=== PATIENT | female | born 1970 | race Caucasian/White ===

== ENCOUNTER → 2021-04-20 | Outpatient (CLI) | payer OTHER | LOC: COL.VAS 13:39 | DX: N18.4 Chronic kidney disease, stage 4 (severe) (principal) ==

== ENCOUNTER 2021-10-30 15:38 | Inpatient (IN) | payer OTHER ==
[~2021-10-30] VITALS: Ht 149.9 cm; Wt 79.3 kg
[2021-11-01 09:50] LABS: BASO % 0.4 % (0.0-2.0); EOS # 0.4 K/mm3 (0.0-0.7); EOS % 4.5 % (0-4.0); GRAN # 5.8 K/mm3 (1.4-6.5); GRAN % 70.9 % (42.2-75.2); LYMPH % 12.5 % (20.0-51.0); MEAN CELL VOLUME 86 fl (80.0-100.0); MEAN CORPUSCULAR HGB CONC 31 g/dl (33.0-37.0); MEAN PLATELET VOLUME 11.2 fl (7.4-10.4); MONO # 0.9 K/mm3 (0.1-0.6); MONO % 11.2 % (1.7-9.3); PLATELET COUNT 171 K/mm3 (130-400); RED BLOOD COUNT 3.35 M/mm3 (4.10-5.30); REDCELL DISTRIBUTION WIDTH-CV 13.9 % (11.5-14.5)
[2021-11-01 09:52] LABS: HEMATOCRIT 28.8 % (37.0-47.0); MEAN CORPUSCULAR HEMOGLOBIN 27 pg (27.0-31.0)
[2021-11-01 10:06] LABS: ALBUMIN 3.1 gm/dL (3.5-5.0); CALCIUM 8.8 mg/dL (8.4-10.2); CREATININE, serum 3.32 mg/dL (0.57-1.11); PHOSPHOROUS 4.4 mg/dL (2.3-4.7); POTASSIUM 4.7 mmol/L (3.5-4.5)
--- NOTE | 2021-11-01 11:30 | NUR ---
PT RETURNED FROM OR. O2 SATS ARE UNSTABLE RANGING FROM 88-94% ON ROOM AIR. BP IS SOMEWHAT LOW AT 111/35. TEMP 97.6 HR IS 75 AND RR 14.
--- NOTE | 2021-11-01 15:26 | NUR ---
PATIENT TOLERATED HER 1ST HD TX WITH 900 ML FLUID REMOVAL. NEXT PLANNED HD TX TOMORROW, Saturday11/02/21 @ 0830.
[2021-11-01 15:27] VITALS: BP 119/59; PULSE 77; TEMP 97.8
[2021-11-01 16:04] VITALS: BP 150/52; PULSE 76; TEMP 98.6
[2021-11-01] MEDS ORDERED: NORVASC 10MG10 MG PO (16:36)
[2021-11-01] MEDS ORDERED: SPORANOX100 MG PO (16:37)
[2021-11-01] MEDS ORDERED: ASPIRIN 81M81 MG/TA2 PO (16:37)
[2021-11-01] MEDS ORDERED: TOPROL XL100 MG PO (16:39)
[2021-11-01] MEDS ORDERED: BUMEX2 MG PO (16:39)
[2021-11-01] MEDS ORDERED: ROCALTROL0.5 MCG PO (16:40)
[2021-11-01] MEDS ORDERED: REGLAN 5MG T5 MG/TAB PO (16:41)
[2021-11-01] MEDS ORDERED: ZESTRIL 20MG TA20 MG PO (16:41)
[2021-11-01] MEDS ORDERED: LANTUS100 U/ML SQ (16:43)
[2021-11-01] MEDS ORDERED: ARANESP0.06 MG/0. SQ (16:45)
[2021-11-01] MEDS ORDERED: VELTASSA8.4 GM PO (16:47)
[2021-11-01 19:11] VITALS: BP 138/48; PULSE 78; TEMP 98.2
[2021-11-01 23:07] LABS: TRANSFERRIN 146 mg/dL (180-382)
--- NOTE | 2021-11-01 23:42 | NUR ---
ALERT AND OX4. DENIES SOA, CHEST PAIN OR DIZZY. DIALYSIS INITATED TODAY. BEDROS CALLED TO RESTART HOME MEDS AND TO ASK FOR PAIN MEDS. TYL NOT WORKING. PM MEDS GIVEN. INSULIN AND CHECKS PER ORDER. CALL LIGHT WI REACH.
[2021-11-01 23:53] VITALS: BP 157/58; PULSE 87; TEMP 98.7
[2021-11-02 01:02] LABS: HEPATITIS B SURFACE ANTIBODY <2.0 (()); HEPATITIS B SURFACE ANTIGEN Negative (Negative); HEPATITIS C VIRUS ANTIBODY Negative (Negative)
[2021-11-02 03:53] VITALS: BP 151/64; PULSE 83; TEMP 98
--- NOTE | 2021-11-02 05:25 | NUR ---
RESTED THROUGH THE NIGHT WITHOUT INCIDENT. NEEDS MET.
--- NOTE | 2021-11-02 06:32 | NUR ---
DRINKING OJ FOR 52 BLOOD SUGAR BRINGS IT UP TO 68. DRINKING ANOTHER JUICE CUP NOW. ASSYMTOMATIC.
[2021-11-02 08:00] VITALS: BP 157/62; PULSE 86; TEMP 98.5
--- NOTE | 2021-11-02 08:30 | NUR ---
Patient is going to dialysis at this time
[2021-11-02 09:34] LABS: BASO % 0.3 % (0.0-2.0); EOS # 0.4 K/mm3 (0.0-0.7); GRAN % 71.7 % (42.2-75.2); LYMPH # 0.7 K/mm3 (1.2-3.4); LYMPH % 10.5 % (20.0-51.0); MEAN CELL VOLUME 86 fl (80.0-100.0); MEAN CORPUSCULAR HGB CONC 31 g/dl (33.0-37.0); MONO # 0.8 K/mm3 (0.1-0.6); MONO % 11.9 % (1.7-9.3); PLATELET COUNT 197 K/mm3 (130-400); RED BLOOD COUNT 3.18 M/mm3 (4.10-5.30); REDCELL DISTRIBUTION WIDTH-CV 13.7 % (11.5-14.5)
[2021-11-02 09:35] LABS: HEMATOCRIT 27.3 % (37.0-47.0); HEMOGLOBIN 8.5 g/dl (12.5-16.0); MEAN CORPUSCULAR HEMOGLOBIN 27 pg (27.0-31.0)
[2021-11-02 09:40] LABS: INR 1.1 (0.8-3.0); PROTHROMBIN TIME 11.7 SECONDS (9.7-12.8)
[2021-11-02 09:49] LABS: ALBUMIN 2.8 gm/dL (3.5-5.0); CALCIUM 8.6 mg/dL (8.4-10.2); CREATININE, serum 2.54 mg/dL (0.57-1.11); PHOSPHOROUS 3.8 mg/dL (2.3-4.7); POTASSIUM 4.5 mmol/L (3.5-4.5)
[2021-11-02 11:17] VITALS: BP 170/74; PULSE 82; TEMP 97.9
--- NOTE | 2021-11-02 11:18 | NUR ---
PATIENT TOLERATED HER 2ND HD TX WITH 900 ML OF FLUID REMOVED. NEXT PLANNED HD TX TOMORROW, Saturday11/03/21 @ 0830.
[2021-11-02 11:37] VITALS: BP 149/61; PULSE 85; TEMP 97.7
--- NOTE | 2021-11-02 14:28 | NUR ---
PAULA met with the patient to discuss discharge plan. The patient lives in [place] with her , Max (ph#[phone]). She reports independence with ADLS and does not have any DME. The patient's PCP is Dr. Nam Ann at [facility] and she receives her medications from [facility]. The patient does not have a DPOA-HC, but she was interested in obtaining a form. PAULA provided. The patient plans to return home with her upon discharge. The patient notified PAULA that she is interested in applying for disability and Medicaid. PAULA consulted Financial CounselorAleyda. No additional needs at this time. *Discharge plan: home with *
[2021-11-02 16:00] VITALS: BP 152/59; PULSE 80; TEMP 98.8
[2021-11-02 21:50] VITALS: BP 138/53; PULSE 76; TEMP 97.5
--- NOTE | 2021-11-02 22:00 | NUR ---
ASSESSMENT COMPLETE. PT COOPERATIVE WITH CARES. PT RESTING IN BED TALKING TO HER ON THE PHONE. PT GIVEN BEDTIME INSULIN WITH A BLOOD GLUCOSE READING OF 113 AND VANILLA ICE CREAM HER CHOOSEN BEDTIME SNACK. PT COMPLAINED OF NAUSEA AND WAS GIVEN ZOFRAN. PT DENIES PAIN, PALPITATIONS, SOB OR DIZZINESS. PT STATES SHE HAS NO OTHER NEEDS AT THIS TIME. CALL LIGHT WITHIN REACH.
[2021-11-03 00:41] VITALS: BP 154/64; PULSE 77; TEMP 98.1
[2021-11-03 04:08] VITALS: BP 141/54; PULSE 73; TEMP 98.1
--- NOTE | 2021-11-03 05:02 | NUR ---
Noted to have OO2 saturation of 89% charted during vitals verification. Rechecked at this time by this nurse-95% on RA. Will monitor.
--- NOTE | 2021-11-03 06:09 | NUR ---
PT ASLEEP IN BED. PT HAD AN UNEVENTFUL NIGHT. PT INFORMED HER DIALYSIS TREAMENT IS SCHEDULED FOR 0830HRS TODAY. CALL LIGHT WITHIN REACH.
[2021-11-03 07:30] VITALS: BP 157/60; PULSE 73; TEMP 97.4
--- NOTE | 2021-11-03 08:45 | NUR ---
Patient is ambulatory and i escorted her down to dialyis at this time
[2021-11-03 09:31] LABS: HEMATOCRIT 28.2 % (37.0-47.0); HEMOGLOBIN 8.5 g/dl (12.5-16.0); MEAN CELL VOLUME 90 fl (80.0-100.0); MEAN CORPUSCULAR HEMOGLOBIN 27 pg (27.0-31.0); MEAN CORPUSCULAR HGB CONC 30 g/dl (33.0-37.0); MEAN PLATELET VOLUME 12.5 fl (7.4-10.4); PLATELET COUNT 164 K/mm3 (130-400); RED BLOOD COUNT 3.14 M/mm3 (4.10-5.30); REDCELL DISTRIBUTION WIDTH-CV 13.8 % (11.5-14.5)
[2021-11-03 09:44] LABS: ALBUMIN 2.8 gm/dL (3.5-5.0); CALCIUM 8.6 mg/dL (8.4-10.2); CREATININE, serum 2.65 mg/dL (0.57-1.11); PHOSPHOROUS 3.5 mg/dL (2.3-4.7); POTASSIUM 4.8 mmol/L (3.5-4.5)
[2021-11-03 10:09] LABS: BAND 1 % (0-10); BASOPHIL 2 % (0-2); EOSINOPHIL 5 % (0-4); HYPOCHROMIA 3+; LYMPHOCYTE 14 % (20.0-51.0); NEUTROPHILS 72 % (42.0-75.2); PLATELET ESTIMATE NORMAL (NORMAL)
[2021-11-03] MEDS ORDERED: BUMEX2 MG PO (10:51)
[2021-11-03] MEDS ORDERED: VITAMINC250CH PO (10:53)
[2021-11-03] MEDS ORDERED: FOLIC ACID 11 MG/TA1 PO (10:54)
[2021-11-03] MEDS ORDERED: NATURE'S BLEND100 M2 PO (10:54)
[2021-11-03] MEDS ORDERED: B-121000 MCG PO (10:56)
[2021-11-03 11:17] VITALS: BP 166/77; PULSE 76; TEMP 97.7
[2021-11-03] MEDS ORDERED: ULTRAM 50MG TAB50 MG PO (11:17)
--- NOTE | 2021-11-03 11:56 | NUR ---
PATIENT TOLERATED HER 3RD HD TX WITH 1.5L OF FLUID REMOVED TODAY. NEXT PLANNED HD TX ON Saturday10/08/21 @ 1430 @ [facility] IN [place].
[2021-11-03 12:39] VITALS: BP 175/68; PULSE 80; TEMP 98.2
--- NOTE | 2021-11-03 13:24 | NUR ---
Discharge instructions reviewed with the patient and her , instructed to attend outpatient dialysis as scheduled, COVID swab was negative, instructedto take meds as prescribed, reinforced that rules on not showering and keeping HDC clean and dry, she verablized understanding of instructions, I will escort them out the door
== END 2021-11-03 14:10 | disposition home or self-care (01) | DRG 673 ==
LOC: MEDICAL 11-01 08:29 → SDCO 11-01 08:29 → MEDICAL 11-01 08:58 → SDCO 11-01 08:58 → EDSTATUS 11-01 10:30 → SDCO 11-01 10:30 → MEDICAL 11-02 15:26
PROVIDERS: ADMIT Surgery
PROC: 05HM33Z Insertion of Infusion Device into Right Internal Jugular Vein, Percutaneous Approach (ICD-10-PCS; 2021-11-01)
PROC: 5A1D70Z Performance of Urinary Filtration, Intermittent, Less than 6 Hours Per Day (ICD-10-PCS; 2021-11-01)
PROC: 0JH63XZ Insertion of Tunneled Vascular Access Device into Chest Subcutaneous Tissue and Fascia, Percutaneous Approach (ICD-10-PCS; principal; 2021-11-01 10:30)
DX: I12.0 Hypertensive chronic kidney disease with stage 5 chronic kidney disease or end stage renal disease (principal); N18.6 End stage renal disease; N17.9 Acute kidney failure, unspecified; E87.2 Acidosis; D63.1 Anemia in chronic kidney disease; E11.22 Type 2 diabetes mellitus with diabetic chronic kidney disease; Z99.2 Dependence on renal dialysis; E21.3 Hyperparathyroidism, unspecified; Z90.49 Acquired absence of other specified parts of digestive tract; Z90.710 Acquired absence of both cervix and uterus; Z98.42 Cataract extraction status, left eye; Z98.41 Cataract extraction status, right eye; Z79.82 Long term (current) use of aspirin; E87.70 Fluid overload, unspecified; Z76.82 Awaiting organ transplant status
CPT/HCPCS: OP; J0690; J1644; J1756; J1815; J2250; J2405; J2704; J7030; Q5105; Q5106

== ENCOUNTER 2021-11-30 05:29 | Inpatient (IN) | payer OTHER ==
[~2021-11-30] VITALS: Wt 71.3 kg
[~2021-11-30 05:29] MED LIST: ARANESP0.06 MG/0. SQ; ASPIRIN 81M81 MG/TA2 PO; B-121000 MCG PO; BUMEX2 MG PO; FOLIC ACID 11 MG/TA1 PO; LANTUS100 U/ML SQ; NATURE'S BLEND100 M2 PO; NORVASC 10MG10 MG PO; REGLAN 5MG T5 MG/TAB PO; ROCALTROL0.5 MCG PO; SPORANOX100 MG PO; TOPROL XL100 MG PO; ULTRAM 50MG TAB50 MG PO; VELTASSA8.4 GM PO; VITAMINC250CH PO; ZESTRIL 20MG TA20 MG PO
[2021-11-30 05:57] LABS: COLLECTION METHOD CLEAN CATCH
[2021-11-30 06:19] LABS: BASO % 0.3 % (0.0-2.0); EOS # 0.2 K/mm3 (0.0-0.7); EOS % 1.9 % (0.0-4.0); GRAN # 9.9 K/mm3 (1.4-6.5); GRAN % 79.1 % (42.2-75.2); HEMOGLOBIN 10.3 g/dl (12.5-16.0); LYMPH # 0.8 K/mm3 (1.2-3.4); LYMPH % 6.3 % (20.0-51.0); MEAN CELL VOLUME 90 fl (80.0-100.0); MEAN CORPUSCULAR HEMOGLOBIN 27 pg (27-31); MEAN CORPUSCULAR HGB CONC 30 g/dl (33.0-37.0); MONO # 1.5 K/mm3 (0.1-0.6); MONO % 11.7 % (1.7-9.3); PLATELET COUNT 167 K/mm3 (130-400); RED BLOOD COUNT 3.85 M/mm3 (4.10-5.30); REDCELL DISTRIBUTION WIDTH-CV 14.8 % (11.5-14.5)
[2021-11-30 06:37] LABS: ALBUMIN 3.1 gm/dL (3.5-5.0); BILIRUBIN,TOTAL 0.3 mg/dL (0.2-1.2); CALCIUM 9.1 mg/dL (8.4-10.2); CREATININE, serum 2.92 mg/dL (0.57-1.11); POTASSIUM 4.8 mmol/L (3.5-4.5); TOTAL PROTEIN 7.2 gm/dL (6.2-8.1)
[2021-11-30 06:39] LABS: TROPONIN-I 0.04 ng/mL (0.00-0.033)
[2021-11-30 06:58] LABS: MUCOUS Present (NOT PRESENT); PH 7 (5-8); URINE APPEARANCE Clear (CLEAR/HAZY); URINE BACTERIA Rare /hpf (NONE SEEN); URINE BILIRUBIN Negative (NEGATIVE); URINE BLOOD Negative (NEGATIVE); URINE COLOR Yellow (YELLOW); URINE GLUCOSE 1+ (NEGATIVE); URINE KETONE Negative (NEGATIVE); URINE LEUKOCYTE ESTERASE Negative (NEGATIVE); URINE NITRATE Negative (NEGATIVE); URINE PROTEIN(semi-quant) 3+ (NEGATIVE); URINE UROBILINOGEN Negative (NEGATIVE)
[2021-11-30 07:12] LABS: HEMATOCRIT 34.8 % (37.0-47.0)
[2021-11-30 12:05] VITALS: BP 150/69; PULSE 87; TEMP 99.9
--- NOTE | 2021-11-30 13:13 | NUR ---
Vancomycin Initial Dosing Pharmacy Note Ordering provider: Candy Indication/duration: Dialysis cathetar infection Relevant comorbidities: Dialysis - [facility] LABS: SCr 2.92, GFR 17 Recommendation: Will redose based on random Vancomycin levels. Vancomycin 1.5 gm IV x1 given 11/30/21. Will check random level 12/01/21 prior to dialysis. Pharmacy will continue to closely monitor. Loading dose: 1.5 grams Maintenance dose: Dosing based on random levels. Trough goal: 15-20 ug/mL
--- NOTE | 2021-11-30 13:33 | NUR ---
PATIENT TOLERATED 20 MINS OF HD TX THEN BECAME AGITATED WITH BP 97/47 WITH UF GOAL @ 1.4L OTHER VSS. PATIENT REQUESTED TO DC TX & DR. TILLEY AWARE. POST TX VSS & PATIENT DENIED ANY OTHER PROBLEMS.
[2021-11-30 14:21] VITALS: BP 136/38; PULSE 92; TEMP 101.1
[2021-11-30 15:24] VITALS: BP 153/67; PULSE 91; TEMP 100
[2021-11-30 19:26] VITALS: BP 167/63; PULSE 93; TEMP 97.9
[2021-11-30 20:03] VITALS: BP 156/61; PULSE 94; TEMP 102.3
[2021-12-01 00:01] VITALS: BP 148/61; PULSE 84; TEMP 98.8
[2021-12-01 03:42] VITALS: BP 158/63; PULSE 89; TEMP 98.1
[2021-12-01 06:18] LABS: BASO % 0.4 % (0.0-2.0); EOS % 0.6 % (0.0-4.0); GRAN # 6.1 K/mm3 (1.4-6.5); GRAN % 87.2 % (42.2-75.2); LYMPH # 0.3 K/mm3 (1.2-3.4); LYMPH % 3.8 % (20.0-51.0); MEAN CELL VOLUME 89 fl (80.0-100.0); MEAN CORPUSCULAR HEMOGLOBIN 27 pg (27-31); MEAN CORPUSCULAR HGB CONC 30 g/dl (33.0-37.0); MEAN PLATELET VOLUME 12.4 fl (7.4-10.4); MONO # 0.5 K/mm3 (0.1-0.6); MONO % 7.4 % (1.7-9.3); PLATELET COUNT 121 K/mm3 (130-400); RED BLOOD COUNT 3.69 M/mm3 (4.10-5.30); REDCELL DISTRIBUTION WIDTH-CV 14.6 % (11.5-14.5)
[2021-12-01 06:38] LABS: ALBUMIN 2.5 gm/dL (3.5-5.0); CALCIUM 8.8 mg/dL (8.4-10.2); CREATININE, serum 2.98 mg/dL (0.57-1.11); PHOSPHOROUS 4.5 mg/dL (2.3-4.7); POTASSIUM 4.6 mmol/L (3.5-4.5)
[2021-12-01 07:42] VITALS: BP 119/45; PULSE 99; TEMP 99.7
[2021-12-01 11:12] VITALS: BP 144/58; PULSE 89; TEMP 97.7
--- NOTE | 2021-12-01 11:54 | NUR ---
sheet metal worker maintenance met with patient to discuss discharge planning. Patient is a readmission due to infection that developed. Patient will return home with her spouse and she has been independent with her activities of daily living. Patient receives primary care and prescriptions at [facility]. No unmet needs identified at this time.
[2021-12-01 16:00] VITALS: BP 143/42; PULSE 95; TEMP 100.8
[2021-12-01 19:59] VITALS: BP 156/67; PULSE 93; TEMP 100.1
[2021-12-02 00:51] VITALS: BP 141/58; PULSE 79; TEMP 98.6
--- NOTE | 2021-12-02 01:47 | NUR ---
PATIENT A&O. DENIES PAIN. SEE ASSESSMENT. SCHEDULED MEDS ADMINISTERED. INT TO L HAND PATENT. STOOL SAMPLE STILL NEEDED PATIENT STATES SHE HAS NOT HAD ONE THIS SHIFT YET. IV DRESSING CHANGED. PATIENT RESTING IN BED. CALL LIGHT WITHIN REACH.
[2021-12-02 04:01] VITALS: BP 131/62; PULSE 73; TEMP 97.9
[2021-12-02 07:49] LABS: HEMOGLOBIN 10.2 g/dl (12.5-16.0); MEAN CELL VOLUME 91 fl (80.0-100.0); MEAN CORPUSCULAR HEMOGLOBIN 27 pg (27-31); MEAN CORPUSCULAR HGB CONC 30 g/dl (33.0-37.0); MEAN PLATELET VOLUME 11.9 fl (7.4-10.4); PLATELET COUNT 116 K/mm3 (130-400); REDCELL DISTRIBUTION WIDTH-CV 14.5 % (11.5-14.5)
[2021-12-02 07:55] VITALS: BP 127/47; PULSE 78; TEMP 98.4
[2021-12-02 08:03] LABS: ALBUMIN 2.4 gm/dL (3.5-5.0); CALCIUM 8.8 mg/dL (8.4-10.2); CREATININE, serum 3.32 mg/dL (0.57-1.11); PHOSPHOROUS 4.6 mg/dL (2.3-4.7)
[2021-12-02 08:06] LABS: HEMATOCRIT 34.4 % (37.0-47.0)
--- NOTE | 2021-12-02 09:00 | NUR ---
PT ASSESSED. NO COMPLAINTS OF PAIN OR DYSPNEA. NO SIGNS OR SYMPTOMS OF DISTRESS. CALL LIGHT WITHIN REACH.
[2021-12-02 09:30] LABS: BAND 9 % (0-10); EOSINOPHIL 4 % (0-4); HYPOCHROMIA 3+; LYMPHOCYTE 28 % (20.0-51.0); NEUTROPHILS 45 % (42.0-75.2); PLATELET ESTIMATE DECREASED (NORMAL)
[2021-12-02 11:08] VITALS: BP 154/52; PULSE 80; TEMP 98.1
[2021-12-02 15:37] VITALS: BP 152/58; PULSE 82; TEMP 98.5
[2021-12-02 19:27] VITALS: BP 149/50; PULSE 85; TEMP 98.3
[2021-12-03] VITALS (7 sets, daily range): BP systolic 119–153; BP diastolic 51–65; PULSE 77–85; TEMP 98.1–98.5
[2021-12-03 06:53] LABS: BASO % 0.5 % (0.0-2.0); EOS # 0.2 K/mm3 (0.0-0.7); EOS % 5.2 % (0.0-4.0); GRAN # 1.8 K/mm3 (1.4-6.5); GRAN % 47.7 % (42.2-75.2); LYMPH % 28.1 % (20.0-51.0); MEAN CELL VOLUME 88 fl (80.0-100.0); MEAN CORPUSCULAR HGB CONC 30 g/dl (33.0-37.0); MEAN PLATELET VOLUME 12.2 fl (7.4-10.4); MONO # 0.7 K/mm3 (0.1-0.6); MONO % 17.7 % (1.7-9.3); PLATELET COUNT 124 K/mm3 (130-400); RED BLOOD COUNT 3.61 M/mm3 (4.10-5.30); REDCELL DISTRIBUTION WIDTH-CV 14.2 % (11.5-14.5)
[2021-12-03 07:03] LABS: ALBUMIN 2.3 gm/dL (3.5-5.0); CALCIUM 8.7 mg/dL (8.4-10.2); CREATININE, serum 3.22 mg/dL (0.57-1.11); HEMATOCRIT 31.9 % (37.0-47.0); HEMOGLOBIN 9.7 g/dl (12.5-16.0); MEAN CORPUSCULAR HEMOGLOBIN 27 pg (27-31); PHOSPHOROUS 4.4 mg/dL (2.3-4.7); POTASSIUM 4.4 mmol/L (3.5-4.5)
--- NOTE | 2021-12-03 07:05 | NUR ---
PT HAS DONE WELL DURING NIGHT, STATES THAT SHE HAS SLEPT ON ET OFF. PT WALKS INDEPENDENTLY IN ROOM, GAIT IS STEADY. STANDING SCALE IS USED TO MEASURE PT'S DAILY WT. PT IS GIVEN FRESH WATER TO DRINK, VERBALIZES UNDERSTANDING OF FLUID RESTRICTION. DRESSING IS IN PLACE OVER PREVIOUS DIALYSIS CATHETER SITE IN PT'S RIGHT CHEST, CDI. PT STATES THAT SHE HAS NOTICED THAT THERE IS A BUMP ABOVE THE DRESSING BETWEEN HER NECK ET CHEST ON THE RIGHT SIDE. SKIN IS NORMAL IN APPEARANCE BUT BUMP UNDER SKIN IS VISIBLE. REPORT IS GIVEN TO DAY SHIFT NURSE, EVITA ROBERT.
--- NOTE | 2021-12-03 09:23 | NUR ---
PT ASSESSED. NO COMPLAINTS OF PAIN OR DYSPNEA. NO SIGNS OR SYMPTOMS OF DISTRESS. CALL LIGHT WITHIN REACH.
[2021-12-03 13:01] LABS: CLOSTRIDIUM DIFF A/B NEG; CLOSTRIDIUM DIFF A/B INTERP No C.diff present
[2021-12-04 04:25] VITALS: BP 151/63; PULSE 83; TEMP 98.4
[2021-12-04 06:56] LABS: BASO % 0.5 % (0.0-2.0); EOS # 0.2 K/mm3 (0.0-0.7); EOS % 4.8 % (0.0-4.0); GRAN # 2.2 K/mm3 (1.4-6.5); GRAN % 50.7 % (42.2-75.2); LYMPH # 1.2 K/mm3 (1.2-3.4); LYMPH % 28.4 % (20.0-51.0); MEAN CELL VOLUME 88 fl (80.0-100.0); MEAN CORPUSCULAR HGB CONC 30 g/dl (33.0-37.0); MEAN PLATELET VOLUME 12.7 fl (7.4-10.4); MONO # 0.7 K/mm3 (0.1-0.6); MONO % 14.9 % (1.7-9.3); PLATELET COUNT 161 K/mm3 (130-400); RED BLOOD COUNT 3.56 M/mm3 (4.10-5.30)
[2021-12-04 06:58] LABS: HEMATOCRIT 31.3 % (37.0-47.0); HEMOGLOBIN 9.4 g/dl (12.5-16.0); MEAN CORPUSCULAR HEMOGLOBIN 26 pg (27-31)
[2021-12-04 07:07] LABS: ALBUMIN 2.3 gm/dL (3.5-5.0); CALCIUM 8.7 mg/dL (8.4-10.2); CREATININE, serum 2.99 mg/dL (0.57-1.11); PHOSPHOROUS 4.6 mg/dL (2.3-4.7); POTASSIUM 4.1 mmol/L (3.5-4.5)
[2021-12-04 07:37] VITALS: BP 155/63; PULSE 79; TEMP 98.2
--- NOTE | 2021-12-04 09:29 | NUR ---
PT ASSESSED. NO COMPLAINTS OF PAIN OR DYSPNEA. NO SIGNS OR SYMPTOMS OF DISTRESS. CALL LIGHT WITHIN REACH
[2021-12-04] MEDS ORDERED: ZESTRIL 10MG10 MG PO (10:11)
[2021-12-04] MEDS ORDERED: BUMEX2 MG PO (10:12)
[2021-12-04] MEDS ORDERED: SODIUM BICARBO650 MG PO (10:12)
[2021-12-04] MEDS ORDERED: CEPHALEXIN500 M1 PO (10:15)
--- NOTE | 2021-12-04 10:50 | NUR ---
Initial visit; Patient thanked Senior Software Manager for offering blessings though declined spiritual care at this time.
[2021-12-04 11:00] LABS: CREATININE, serum 3.22 mg/dL (0.57-1.11)
[2021-12-04 11:23] VITALS: BP 157/69; PULSE 82; TEMP 98.2
--- NOTE | 2021-12-04 14:48 | NUR ---
PT DISCHARGE TEACHING COMPLETE. ALL QUESTIONS ANSWERED. INFORMATION GIVEN IN REGARDS TO MEDCIATION AND FOLLOWUP APPOINTMENTS. IV REMOVED. PT ESCORTED OUT
== END 2021-12-04 14:50 | disposition home or self-care (01) | DRG 314 ==
LOC: COL.ER 05:29 → SURG 07:24
PROVIDERS: Emergency Medicine; Registered Nurse; ADMIT Internal Medicine Nephrology
PROC: 5A1D70Z Performance of Urinary Filtration, Intermittent, Less than 6 Hours Per Day (ICD-10-PCS; principal; 2021-11-30)
DX: T82.7XXA Infection and inflammatory reaction due to other cardiac and vascular devices, implants and grafts, initial encounter (principal); N18.6 End stage renal disease; A41.01 Sepsis due to Methicillin susceptible Staphylococcus aureus; N25.81 Secondary hyperparathyroidism of renal origin; I12.0 Hypertensive chronic kidney disease with stage 5 chronic kidney disease or end stage renal disease; E87.2 Acidosis; E66.9 Obesity, unspecified; D63.1 Anemia in chronic kidney disease; E11.22 Type 2 diabetes mellitus with diabetic chronic kidney disease; E11.42 Type 2 diabetes mellitus with diabetic polyneuropathy; E11.43 Type 2 diabetes mellitus with diabetic autonomic (poly)neuropathy; K31.84 Gastroparesis; E11.319 Type 2 diabetes mellitus with unspecified diabetic retinopathy without macular edema; Z20.822 Contact with and (suspected) exposure to COVID-19; Y73.1 Therapeutic (nonsurgical) and rehabilitative gastroenterology and urology devices associated with adverse incidents; Z99.2 Dependence on renal dialysis; Z79.82 Long term (current) use of aspirin; Z23 Encounter for immunization; Z68.35 Body mass index [BMI] 35.0-35.9, adult
CPT/HCPCS: J1644; J1815; J2543; J2550; J3370; J7030; J7050